=== PATIENT | male | born 1995 | race Caucasian/White ===

== ENCOUNTER 2017-09-21 20:59 | Emergency (ER) | payer BC, OTHER ==
[2017-09-21] MEDS ORDERED: NS 0.9% 1000 ML*IV.FLUID IV ONE (21:55)
[2017-09-21] MEDS ORDERED: Ketorolac INJ* 30 MG/ML 1 ML VIAL IV PUSH ONE (21:56)
[2017-09-21] MEDS ORDERED: Metoclopramide IV* 5 MG/ML 2 ML VIAL IV SLOW PU ONE (21:56)
[2017-09-21] MEDS ORDERED: Acetaminophen TAB* 325 MG PO ONE (21:57)
[2017-09-21] MEDS ORDERED: methylPREDNISolone 125 MG* 2 ML VIAL IV ONE (21:57)
[2017-09-21 22:15] LABS: Hematocrit 43 % (42-52); Hemoglobin 14.7 g/dl (14.0-18.0); Mean Corpuscular HGB Conc 34 g/dl (31-36); Mean Corpuscular Hemoglobin 31 pg (27-31); Mean Corpuscular Volume 91 fL (80-94); Mean Platelet Volume 8.3 um3 (7.4-10.4); Platelet Count 233 10^3/ul (150-450); Red Blood Count 4.72 10^6/ul (4.0-5.4); Red Cell Distribution Width 13 % (10.5-15)
[2017-09-21 22:31] LABS: EGFR Non-African American 112.7 (>60)
[2017-09-21 22:52] LABS: ABS Basophils 0.2 10^3/ul (0-0.2); ABS Eosinophils 0 10^3/ul (0-0.6); ABS Lymphocytes 6.4 10^3/ul (1.0-4.8); ABS Monocytes 1.7 10^3/ul (0-0.8); ABS Neutrophils 7.8 10^3/ul (1.5-7.7)
[2017-09-21 22:54] LABS: Monocytes % 13 % (0-7)
[2017-09-22 00:36] VITALS: BP 125/62
--- NOTE | 2017-09-22 06:47 | ED ---
Uriel Villegas Nilda, scribed for Dinorah Bedoya MD on 09/21/17 at 2202 . Complex/Multi-Sys Presentation - HPI Summary HPI Summary: This patient is a 22 year old M presenting to [facility] accompanied by friend with a chief complaint of constant vomiting this evening. Pt states he was Dx with mono yesterday morning at [facility] s/p presenting with fatigue and myalgia for 2 weeks. He notes [facility] did strep test which was negative. He states he was not given medication. The patient rates the pain 7/10 in severity. Symptoms aggravated and alleviated by nothing. Patient reports abd achiness secondary to vomiting, fever, sore throat, and nasal congestion, but denies diarrhea. He states vomiting may be secondary to increased mucous. - History Of Current Complaint Chief Complaint: EDNauseaVomitDiarrh Time Seen by Provider: 09/21/17 21:45 Hx Obtained From: Patient Onset/Duration: Sudden Onset, Lasting Hours, Still Present Timing: Constant Location: Pain At: - abd achiness, general myalgia Aggravating Factor(s): nothing Alleviating Factor(s): nothing Associated Signs And Symptoms: Positive: Other - reports abd achiness secondary to vomiting, fever, sore throat, and nasal congestion, but denies diarrhea. Related History: Recent Illness - Dx with mono yesterday - Allergies/Home Medications Allergies/Adverse Reactions: Allergies Allergy/AdvReac Type Severity Reaction Status Date / Time Sulfa (Sulfonamide Allergy Swelling Verified 09/21/17 21:05 Antibiotics) Of Face,Lips,& Throat PMH/Surg Hx/FS Hx/Imm Hx Cardiovascular History: Denies: Hx Pacemaker/ICD Sensory History: Denies: Hx Hearing Aid Psychiatric History: Denies: Hx Panic Disorder Infectious Disease History: No Infectious Disease History: Denies: Traveled Outside the [place] in Last 30 Days - Family History Known Family History: Negative: Hypertension, Diabetes - Social History Occupation: Student Review of Systems Positive: Fever Positive: Sore Throat, Other - nasal congestion Positive: Abdominal Pain - secondary to vomiting, Vomiting. Negative: Diarrhea All Other Systems Reviewed And Are Negative: Yes Physical Exam - Summary Physical Exam Summary: VITAL SIGNS: Reviewed. GENERAL: Patient is an ill-appearing and nourished male who seems uncomfortable. Patient is not in any acute respiratory distress. HEAD AND FACE: No signs of trauma. No ecchymosis, hematomas or skull depressions. No sinus tenderness. EYES: PERRLA, EOMI x 2, No injected conjunctiva, no nystagmus. EARS: Hearing grossly intact. Ear canals and tympanic membranes are within normal limits. MOUTH: Oropharynx within normal limits except for enlarged tonsils with minimal exudate. NECK: Supple, trachea is midline, bilateral anterior cervical lymphadenopathy, no JVD, no carotid bruit, no c-spine tenderness, neck with full ROM. CHEST: Symmetric, no tenderness at palpation LUNGS: Clear to auscultation bilaterally. No wheezing or crackles. CVS: Tachycardic, S1 and S2 present, no murmurs or gallops appreciated. ABDOMEN: Soft, non-tender. No signs of distention. No rebound no guarding, and no masses palpated. Bowel sounds are normal. EXTREMITIES: FROM in all major joints, no edema, no cyanosis or clubbing. NEURO: Alert and oriented x 3. No acute neurological deficits. Speech is normal and follows commands. SKIN: Dry and warm Triage Information Reviewed: Yes Vital Signs On Initial Exam: Initial Vitals Temp Pulse Resp BP Pulse Ox 101.6 F 150 18 147/78 97 09/21/17 21:01 09/21/17 21:01 09/21/17 21:01 09/21/17 21:01 09/21/17 21:01 Vital Signs Reviewed: Yes Diagnostics - Vital Signs Vital Signs Temp Pulse Resp BP Pulse Ox 09/21/17 21:01 101.6 F 150 18 147/78 97 - Laboratory Lab Results: Lab Results 09/21/17 09/21/17 09/21/17 Range/Units 22:05 22:05 22:05 WBC 16.0 H (3.5-10.8) 10^3/ul RBC 4.72 (4.0-5.4) 10^6/ul Hgb 14.7 (14.0-18.0) g/dl Hct 43 (42-52) % MCV 91 (80-94) fL MCH 31 (27-31) pg MCHC 34 (31-36) g/dl RDW 13 (10.5-15) % Plt Count 233 (150-450) 10^3/ul MPV 8.3 (7.4-10.4) um3 Neut % (Auto) Not Reportable Lymph % (Auto) Not Reportable Starke % (Auto) Not Reportable Eos % (Auto) Not Reportable Baso % (Auto) Not Reportable Absolute Neuts (auto) 7.8 H (1.5-7.7) 10^3/ul Absolute Lymphs (auto) 6.4 H (1.0-4.8) 10^3/ul Absolute Monos (auto) 1.7 H (0-0.8) 10^3/ul Absolute Eos (auto) 0 (0-0.6) 10^3/ul Absolute Basos (auto) 0.2 (0-0.2) 10^3/ul Absolute Nucleated RBC Not Reportable Immature Gran % 3 (0-9) % Neutrophils % 49 (38-83) % Band Neutrophils % 3 (0-8) % Lymphocytes % 20 L (25-47) % Reactive Lymphs % 15 H (0-6) % Monocytes % 13 H (0-7) % Eosinophils % 0 (0-6) % Basophils % 0 (0-2) % Nucleated RBC % Not Reportable Abs Neuts (Manual) 7.8 H (1.5-7.7) 10^3/ul Abs Lymphs (Manual) 3.2 (1.0-4.8) 10^3/ul Abs Monocytes (Manual) 2.1 H (0-0.8) 10^3/ul Absolute Eos (Manual) 0 (0-0.6) 10^3/ul Abs Basophils (Manual) 0 (0-0.2) 10^3/ul Normal RBC Morphology Normal (Normal) Hem Pathologist Commnt Pending Sodium 134 L (139-145) mmol/L Potassium 3.8 (3.5-5.0) mmol/L Chloride 102 (101-111) mmol/L Carbon Dioxide 23 (22-32) mmol/L Anion Gap 9 (2-11) mmol/L BUN 7 (6-24) mg/dL Creatinine 0.85 (0.67-1.17) mg/dL Est GFR ( Amer) 145.0 (>60) Est GFR (Non-Af Amer) 112.7 (>60) BUN/Creatinine Ratio 8.2 (8-20) Glucose 133 H (70-100) mg/dL Lactic Acid 1.0 (0.5-2.0) mmol/L Calcium 9.2 (8.6-10.3) mg/dL Total Bilirubin 0.50 (0.2-1.0) mg/dL AST 59 H (13-39) U/L ALT 127 H (7-52) U/L Alkaline Phosphatase 59 (34-104) U/L C-Reactive Protein 68.21 H (< 5.00) mg/L Total Protein 7.3 (6.4-8.9) g/dL Albumin 4.1 (3.2-5.2) g/dL Globulin 3.2 (2-4) g/dL Albumin/Globulin Ratio 1.3 (1-3) Monoscreen Positive A (Negative) Influenza A (Rapid) (Negative) Influenza B (Rapid) (Negative) Group A Strep Rapid (Negative) 09/21/17 09/21/17 Range/Units 22:25 22:26 WBC (3.5-10.8) 10^3/ul RBC (4.0-5.4) 10^6/ul Hgb (14.0-18.0) g/dl Hct (42-52) % MCV (80-94) fL MCH (27-31) pg MCHC (31-36) g/dl RDW (10.5-15) % Plt Count (150-450) 10^3/ul MPV (7.4-10.4) um3 Neut % (Auto) Lymph % (Auto) Starke % (Auto) Eos % (Auto) Baso % (Auto) Absolute Neuts (auto) (1.5-7.7) 10^3/ul Absolute Lymphs (auto) (1.0-4.8) 10^3/ul Absolute Monos (auto) (0-0.8) 10^3/ul Absolute Eos (auto) (0-0.6) 10^3/ul Absolute Basos (auto) (0-0.2) 10^3/ul Absolute Nucleated RBC Immature Gran % (0-9) % Neutrophils % (38-83) % Band Neutrophils % (0-8) % Lymphocytes % (25-47) % Reactive Lymphs % (0-6) % Monocytes % (0-7) % Eosinophils % (0-6) % Basophils % (0-2) % Nucleated RBC % Abs Neuts (Manual) (1.5-7.7) 10^3/ul Abs Lymphs (Manual) (1.0-4.8) 10^3/ul Abs Monocytes (Manual) (0-0.8) 10^3/ul Absolute Eos (Manual) (0-0.6) 10^3/ul Abs Basophils (Manual) (0-0.2) 10^3/ul Normal RBC Morphology (Normal) Hem Pathologist Commnt Sodium (139-145) mmol/L Potassium (3.5-5.0) mmol/L Chloride (101-111) mmol/L Carbon Dioxide (22-32) mmol/L Anion Gap (2-11) mmol/L BUN (6-24) mg/dL Creatinine (0.67-1.17) mg/dL Est GFR ( Amer) (>60) Est GFR (Non-Af Amer) (>60) BUN/Creatinine Ratio (8-20) Glucose (70-100) mg/dL Lactic Acid (0.5-2.0) mmol/L Calcium (8.6-10.3) mg/dL Total Bilirubin (0.2-1.0) mg/dL AST (13-39) U/L ALT (7-52) U/L Alkaline Phosphatase (34-104) U/L C-Reactive Protein (< 5.00) mg/L Total Protein (6.4-8.9) g/dL Albumin (3.2-5.2) g/dL Globulin (2-4) g/dL Albumin/Globulin Ratio (1-3) Monoscreen (Negative) Influenza A (Rapid) Negative (Negative) Influenza B (Rapid) Negative (Negative) Group A Strep Rapid Negative (Negative) Result Diagrams: 09/21/17 22:05 09/21/17 22:05 Lab Statement: Any lab studies that have been ordered have been reviewed, and results considered in the medical decision making process. Re-Evaluation - Re-Evaluation First Eval Re-Evaluation Time: 23:40 Comment: Reviewed labs with pt. Pt feeling better. Agreeable to D/C. Complex Multi-Symp Course/Dx Assessment/Plan: 22 y/o Dx with Starke 2 days ago. Pt came here with vomiting. Swollen tonsils with mild exudate on exam. Pt treated in ED. Pt feels better. Sx likely secondary to mono. Pt D/C with Motrin and Reglan. - Diagnoses Provider Diagnoses: Infectious mononucleosis, Vomiting Discharge - Sign-Out/Discharge Documenting (check all that apply): Discharge - Discharge Plan Condition: Stable Disposition: HOME Prescriptions: Ibuprofen TAB* [Motrin TAB* 800 MG] 800 mg PO Q6H PRN #30 tab PRN Reason: Fever/Pain Metoclopramide TAB* [Reglan TAB*] 10 mg PO Q6H PRN #20 tab PRN Reason: Nausea/Vomiting Patient Education Materials: Mononucleosis (ED), Acute Nausea and Vomiting (ED) Forms: *School Release Referrals: [facility] - Reagan RAMAN [Primary Care Provider] - 2 Days Additional Instructions: RETURN TO THE EMERGENCY DEPARTMENT FOR CHANGING OR WORSENING SYMPTOMS. - Billing Disposition and Condition Condition: STABLE Disposition: HOME The documentation as recorded by the Uriel reed Nilda accurately reflects the service I personally performed and the decisions made by , Dinorah Bedoya MD.
== END 2017-09-22 00:37 | disposition home or self-care (01) ==
LOC: ED 20:59
DX: B27.90 Infectious mononucleosis, unspecified without complication (principal); R11.10 Vomiting, unspecified; J02.9 Acute pharyngitis, unspecified; R50.9 Fever, unspecified; R10.9 Unspecified abdominal pain
CPT/HCPCS: 36415; 80053; 83605; 85025; 85060; 86140; 86308; 87040; 87502; 87651; 96374; 96375; 99284; A9270-GY; J1885; J2765; J2930